=== PATIENT | male | born 1995 | race Two or more races ===

== ENCOUNTER 2025-04-01 08:52 | Emergency (ER) | payer SELFPAY ==
[2025-04-01 09:15] VITALS: BP 147/93; PULSE 95; RESP 18; TEMP 36.9; O2SAT 97; BMI 42.4
--- NOTE | 2025-04-01 09:45 | EDNOTE_ITS ---
<Statement entered by Swetha Ge MD - 04/11/25 00:57> As co-signing physician, I was present and available for consult prn. I concur with the plan and care as documented by the midlevel provider. 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 Patient states that they were taking down a prisoner and he hit the left side of his head on a metal bar. Patient denies loss of consciousness but states that he when initially hit his head he saw flashing lights and he was a little bit confused. Patient states that he had a hard time talking briefly. Patient able to talk with no issues. Patient denies past medical history. Related Data Previous Rx's ?Medication ?Instructions ?Recorded IBU 800 mg tablet (ibuprofen) 800 mg PO Q6H PRN pain # 30 tabs 02/09/22 hydrocodone 5 mg-acetaminophen 325 1 tab PO Q8H PRN pa in #14 tabs 02/09/22 mg tablet ondansetron 4 mg disintegrating 4 mg PO Q8H PRN nausea and 02/09/22 tablet vomiting #10 tabs tamsulosin 0.4 mg capsule (Flomax) 0.4 mg PO QDAY #14 caps 02/09/22 hydrocodone 5 mg-acetaminophen 325 1 tab PO TID PRN pa in #14 tabs 09/24/22 mg tablet ondansetron 4 mg disintegrating 4 mg PO Q8H PRN nausea and 09/24/22 tablet vomiting #14 tabs tamsulosin 0.4 mg capsule (Flomax) 0.4 mg PO QDAY #7 c aps 09/24/22 ibuprofen 600 mg tablet 600 mg PO Q8H PRN fever or p ain 04/27/24 #20 tabs ibuprofen 800 mg tablet 800 mg PO Q6H PRN pain #20 t abs 04/01/25 Allergies Allergy/AdvReac Type Severity Reaction Status Date / Time No Known Allergies Allergy Verified 04/01/25 08:55 Review of Systems Review of Systems Systems Reviewed: All systems reviewed, normal except as documented Past Medical History Social History SMOKING STATUS: Never smoker ED Exam Narrative Physical exam: VITAL SIGNS: Reviewed. GENERAL APPEARANCE: Alert and interactive, follows commands, no acute distress HEAD AND FACE: Non-traumatic. ENT: PERRL, pink conjunctivitis, eyelid no trauma, Mucous membrane moist. Small abrasion to left upper ear lobe NECK: Supple, nontender, no nuchal rigidity. CHEST: No tenderness, no crepitus, no paradoxical movement, no retractions. LUNGS: breathing even and unlabored HEART: Regular rate, cap refill less than 2 seconds ABDOMEN: Soft, nondistended, no guarding, nontender, no rebound, no masses, NEUROLOGICAL: Gross motor function intact sensory function intact, Appropriate for age. MUSCULOSKELETAL: low back nontender, full range of motion. EXTREMITIES: No redness no swelling no skin breakdown on bilateral foot and leg. Distal neurovascular status intact bilateral foot SKIN: Color pink, dry, no rash, no lacerations, no abrasions, no contusions. Course Quality Measures none Orders Category Date Time Status CT head/brain wo con Stat Exams 04/01/25 09:45 Completed Vital Signs Vital signs: Vital Signs Temperature 98.5 F 04/01/25 09:15 Pulse Rate 95 04/01/25 09:15 Respiratory Rate 18 04/01/25 09:15 Blood Pressure 147/93 H 04/01/25 09:15 Pulse Oximetry (%) 97 04/01/25 09:15 Oxygen Delivery Method Room Air 04/01/25 09:15 Fall MDM Narrative MDM Narrative:: ct head: Findings: No significant ventricular enlargement. Intra-axial or extra-axial hemorrhage density is not seen. No mass effect or midline shift Basal cisterns are not remarkable. Fourth ventricle is midline. Cranial vault intact. Impression: Negative for acute hemorrhage, mass effect or midline shift Today patient had Ct scan. There was no acute fracture seen. Exam appeared unremarkable. I explained to patient at length that if there was continued pain to this area or worsened to come back to ED or see primary provider for more xrays or further testing such as CT scan or MRI. X rays are not perfect and sometimes serial films needed. Patient verbalized understanding. Patient states they will follow up with primary provider in 1-2 days or come back to ED if symptoms change or worsen. Patient data External records reviewed:: [facility] previous records Clinical information provided by:: patient Social determinants that could affect healthcare access:: none Patient has the following chronic illnesses:: none How is presenting disease/condition affected by chronic disease/condition?: no chronic disease Evaluation data The following diagnostics were reviewed and interpreted by me:: radiology exam(s) Lab and/or radiology exams considered but not ordered:: none Interpretation Summary: see note Medications / Prescriptions Medications or Prescriptions considered but not ordered:: none Medication administrations:: none Consultations Consultation(s) initiated? (list below): No Diagnosis Fall Differential Diagnosis: other (contusion, abrasion, concussion, skull fracture) Most likely diagnosis given after review of the tests above:: head injury contusion Admission Indicated Admission indicated?: not indicated Admission Request Was there a request for admission?: No Disposition Plan Disposition Plan: Discharge Discharge Attestation Discharge Attestation: The patient and all family members were given an opportunity to ask questions and understood the discharge instructions. Discharge instructions specifically effects, indications for sooner follow up or return to the emergency department, and the expected course of current diagnosis. Patient condition: Stable Discharge Plan Plan Patient Disposition: HOME (Self Care) Patient condition on transfer: Stable Prescriptions/Referrals Prescriptions/Med Rec: New ibuprofen 800 mg tablet 800 mg PO Q6H PRN (Reason: pain) Qty: 20 0RF No Action ibuprofen [IBU] 800 mg tablet 800 mg PO Q6H PRN (Reason: pain) Qty: 30 0RF hydrocodone-acetaminophen 5-325 mg tablet 1 tab PO Q8H MDD 3 a day PRN (Reason: pain) Qty: 14 0RF tamsulosin [Flomax] 0.4 mg capsule 0.4 mg PO QDAY Qty: 14 0RF ondansetron 4 mg tablet,disintegrating 4 mg PO Q8H PRN (Reason: nausea and vomiting) Qty: 10 0RF tamsulosin [Flomax] 0.4 mg capsule 0.4 mg PO QDAY Qty: 7 0RF hydrocodone-acetaminophen 5-325 mg tablet 1 tab PO TID MDD 3 PRN (Reason: pain) Qty: 14 0RF ondansetron 4 mg tablet,disintegrating 4 mg PO Q8H PRN (Reason: nausea and vomiting) Qty: 14 0RF ibuprofen 600 mg tablet 600 mg PO Q8H PRN (Reason: fever or pain) Qty: 20 0RF Referrals: Mario Zelaya MD [Primary Care Provider] - In 1 week Problem List Clinical Impression: Head injury Patient/Caregiver Discharge Instructions Discharge Activity: activity as tolerated Education Materials: ED Head Injury (Adult) Additional Instructions: Follow up with primary provider in 1-2 days. Come back to ED if symptoms change or worsen Print Language: Polish Stand Alone Forms: Kary Award Info., Patient Portal Info Letter PA/CASINO DUTY MANAGER Supervising Physician PA/CASINO DUTY MANAGER Supervising Physician: shayy
--- NOTE | 2025-04-01 09:45 | XR_ITS ---
Examination: CT brain head without contrast. 2-D sagittal coronal reconstructions Date and time of exam:April 01, 2025 0959 hrs. Indications: Patient fell at work today with injury to the head, head pain dizziness CTDI: vol (mGy):57.4 DLP: (mGycm):1007 Technique: Multiple CT axial sections of the brain have been obtained, 5 mm slice thickness. Contrast has not been administered. 2-D sagittal, coronal reconstructions have been obtained Low dose protocols were performed. One or more of the following dose reduction techniques were used; automated exposure control, adjustment of the mA and/or KV according to patient size, use of iterative reconstruction technique. Findings: No significant ventricular enlargement. Intra-axial or extra-axial hemorrhage density is not seen. No mass effect or midline shift Basal cisterns are not remarkable. Fourth ventricle is midline. Cranial vault intact. Impression: Negative for acute hemorrhage, mass effect or midline shift
== END 2025-04-01 12:57 | disposition home or self-care (01) ==
PROVIDERS: Emergency Provider Emergency Medicine; PCP Obstetrics & Gynecology
DX: S09.90XA Unspecified injury of head, initial encounter (principal); W22.09XA Striking against other stationary object, initial encounter; Y99.0 Civilian activity done for income or pay
CPT/HCPCS: 70450; 99284

== ENCOUNTER 2025-09-02 09:31 | Emergency (ER) | payer BC, SELFPAY ==
[2025-09-02 09:32] VITALS: BMI 41.5
[2025-09-02 09:48] VITALS: BP 144/82; PULSE 96; RESP 18; TEMP 36.8; O2SAT 95
--- NOTE | 2025-09-02 09:56 | XR_ITS ---
Examination: Knee, left, 3 views Technique: Knee AP, lateral, oblique 3 views Date and time of exam: 1, 2, 0, 2, 5, 0 0957 hours INDICATIONS: Patient fell down stairs 2 days ago with injury to the knee, knee pain. FINDINGS: No fracture or dislocation. No foreign body IMPRESSION: No fracture or dislocation.
--- NOTE | 2025-09-02 09:56 | XR_ITS ---
Examination: Tibia-Fibula, left, 2 views Technique: Tibia-fibula AP lateral 2 views Date and time of exam: September 02, 2025, 0957 hours INDICATIONS: Patient fell down stairs 2 days ago with injury to the lower leg, lower leg pain. FINDINGS: No fracture or dislocation. No foreign body. IMPRESSION: No fracture or dislocation.
--- NOTE | 2025-09-02 09:57 | EDNOTE_ITS ---
<Statement entered by Swetha Ge MD - 10/02/25 07:27> As co-signing physician, I was present and available for consult prn. I concur with the plan and care as documented by the midlevel provider. Lower Extremity Injury RME/HPI General Chief Complaint: Extremity Injury, Lower Stated Complaint: REFERRED FOR X-RAY OF L KNEE S/P FALL DOWN STAIRS Time Seen by Provider: 09/02/25 09:56 Arrival date/time: 09/02/25 09:31 This is a 30-year-old male that comes into the emergency room with complaints of falling down the stairs. Patient states that he held onto the rail and did not completely fall but did injure his left knee and left lower part of the leg. Patient has no open wounds. Patient denies any other complaints. Patient denies any loss of consciousness. Patient denies any neck or back pain. Related Data Previous Rx's ?Medication ?Instructions ?Recorded IBU 800 mg tablet (ibuprofen) 800 mg PO Q6H PRN pain # 30 tabs 02/09/22 hydrocodone 5 mg-acetaminophen 325 1 tab PO Q8H PRN pa in #14 tabs 02/09/22 mg tablet ondansetron 4 mg disintegrating 4 mg PO Q8H PRN nausea and 02/09/22 tablet vomiting #10 tabs tamsulosin 0.4 mg capsule (Flomax) 0.4 mg PO QDAY #14 caps 02/09/22 hydrocodone 5 mg-acetaminophen 325 1 tab PO TID PRN pa in #14 tabs 09/24/22 mg tablet ondansetron 4 mg disintegrating 4 mg PO Q8H PRN nausea and 09/24/22 tablet vomiting #14 tabs tamsulosin 0.4 mg capsule (Flomax) 0.4 mg PO QDAY #7 c aps 09/24/22 ibuprofen 600 mg tablet 600 mg PO Q8H PRN fever or p ain 04/27/24 #20 tabs ibuprofen 800 mg tablet 800 mg PO Q6H PRN pain #20 t abs 04/01/25 ibuprofen 800 mg tablet 800 mg PO Q6H PRN pain #14 t abs 09/02/25 Allergies Allergy/AdvReac Type Severity Reaction Status Date / Time No Known Allergies Allergy Verified 09/02/25 09:34 Review of Systems Review of Systems Systems Reviewed: All systems reviewed, normal except as documented Past Medical History Social History SMOKING STATUS: Never smoker ED Exam Narrative Physical exam: VITAL SIGNS: Reviewed. GENERAL APPEARANCE: Alert and interactive, follows commands, no acute distress HEAD AND FACE: Non-traumatic. ENT: PERRL, conjuctiva pink and clear, eyelid no trauma, Mucous membrane moist. NECK: Supple, nontender, no nuchal rigidity. CHEST: No tenderness, no crepitus, no paradoxical movement, no retractions. LUNGS: breathing even and unlabored HEART: Regular rate, cap refill less than 2 seconds ABDOMEN: Soft, nondistended, no guarding, nontender, no rebound, no masses, NEUROLOGICAL: Gross motor function intact sensory function intact, Appropriate for age. MUSCULOSKELETAL: low back nontender, full range of motion, mild pain with range of motion to left lower knee no swelling no erythema EXTREMITIES: No redness no swelling no skin breakdown on bilateral foot and leg. Distal neurovascular status intact bilateral foot SKIN: Color pink, dr Course Quality Measures none Orders Category Date Time Status XR knee LT 3V Stat Exams 09/02/25 09:56 Completed XR tibia fibula LT 2V Stat Exams 09/02/25 09:56 Completed Vital Signs Vital signs: Vital Signs Temperature 98.2 F 09/02/25 09:48 Pulse Rate 96 09/02/25 09:48 Respiratory Rate 18 09/02/25 09:48 Blood Pressure 144/82 H 09/02/25 09:48 Pulse Oximetry (%) 95 09/02/25 09:48 Oxygen Delivery Method Room Air 09/02/25 09:48 Extremity Injury, Lower MDM Narrative MDM Narrative:: TIBIA: FINDINGS: No fracture or dislocation. No foreign body. IMPRESSION: No fracture or dislocation. KNEE: FINDINGS: No fracture or dislocation. No foreign body IMPRESSION: No fracture or dislocation. Today patient had xrayThere was no acute fracture seen. Exam appeared unremarkable. I explained to patient at length that if there was continued pain to this area or worsened to come back to ED or see primary provider for more xrays or further testing such as CT scan or MRI. X rays are not perfect and sometimes serial films needed. Patient verbalized understanding. Patient states they will follow up with primary provider in 1-2 days or come back to ED if symptoms change or worsen. Dragon dictation: Although this document has been carefully reviewed, there may still be some phonetic and other typographical errors. These errors are purely grammatical due to imperfections in the software program and should not be construed in any way to compromise the substance of the patient's medical care during this visit. Patient data External records reviewed:: [facility] previous records Clinical information provided by:: patient Social determinants that could affect healthcare access:: none Patient has the following chronic illnesses:: none How is presenting disease/condition affected by chronic disease/condition?: no chronic disease Evaluation data The following diagnostics were reviewed and interpreted by me:: radiology exam(s) Lab and/or radiology exams considered but not ordered:: none Interpretation Summary: see note Medications / Prescriptions Medications or Prescriptions considered but not ordered:: none Medication administrations:: see note Consultations Consultation(s) initiated? (list below): No Diagnosis Extremity Injury, Lower Differential Diagnosis: other (knee contusion, knee fracture, acl tear ) Most likely diagnosis given after review of the tests above:: knee contusion Admission Indicated Admission indicated?: not indicated Admission Request Was there a request for admission?: No Disposition Plan Disposition Plan: Discharge Discharge Attestation Discharge Attestation: The patient and all family members were given an opportunity to ask questions and understood the discharge instructions. Discharge instructions specifically effects, indications for sooner follow up or return to the emergency department, and the expected course of current diagnosis. Patient condition: Stable Discharge Plan Plan Patient Disposition: HOME (Self Care) Patient condition on transfer: Stable Prescriptions/Referrals Prescriptions/Med Rec: New ibuprofen 800 mg tablet 800 mg PO Q6H PRN (Reason: pain) Qty: 14 0RF No Action ibuprofen [IBU] 800 mg tablet 800 mg PO Q6H PRN (Reason: pain) Qty: 30 0RF hydrocodone-acetaminophen 5-325 mg tablet 1 tab PO Q8H MDD 3 a day PRN (Reason: pain) Qty: 14 0RF tamsulosin [Flomax] 0.4 mg capsule 0.4 mg PO QDAY Qty: 14 0RF ondansetron 4 mg tablet,disintegrating 4 mg PO Q8H PRN (Reason: nausea and vomiting) Qty: 10 0RF tamsulosin [Flomax] 0.4 mg capsule 0.4 mg PO QDAY Qty: 7 0RF hydrocodone-acetaminophen 5-325 mg tablet 1 tab PO TID MDD 3 PRN (Reason: pain) Qty: 14 0RF ondansetron 4 mg tablet,disintegrating 4 mg PO Q8H PRN (Reason: nausea and vomiting) Qty: 14 0RF ibuprofen 600 mg tablet 600 mg PO Q8H PRN (Reason: fever or pain) Qty: 20 0RF ibuprofen 800 mg tablet 800 mg PO Q6H PRN (Reason: pain) Qty: 20 0RF Referrals: Imani Coon FNP [Primary Care Provider] - In 1 week Problem List Clinical Impression: Contusion of knee Patient/Caregiver Discharge Instructions Discharge Activity: activity as tolerated Education Materials: Bruises (Contusions) Additional Instructions: Follow up with primary provider in 1-2 days. Come back to ED if symptoms change or worsen Print Language: Hebrew Stand Alone Forms: Kary Award Info., Patient Portal Info Letter PA/CONTINUITY DIRECTOR Supervising Physician LILIAN/CONTINUITY DIRECTOR Supervising Physician: ILANA
== END 2025-09-02 11:35 | disposition home or self-care (01) ==
PROVIDERS: Emergency Provider Emergency Medicine; PCP Registered Nurse Community Health
DX: S80.01XA Contusion of right knee, initial encounter (principal); W10.9XXA Fall (on) (from) unspecified stairs and steps, initial encounter
CPT/HCPCS: 73562; 73590; 99282